=== PATIENT | female | born 1995 | race Caucasian/White ===

== ENCOUNTER 2018-07-08 16:31 | Emergency (ER) | payer SELFPAY ==
[~2018-07-08] VITALS: Ht 157.5 cm; Wt 76.2 kg
[2018-07-08 16:38] VITALS: BP 155/99; Ht 157.5 cm; Wt 76.2 kg
== END 2018-07-08 19:12 | disposition home or self-care (01) ==
LOC: ED 16:31
DX: O20.0 Threatened abortion (principal); O24.911 Unspecified diabetes mellitus in pregnancy, first trimester; E10.8 Type 1 diabetes mellitus with unspecified complications; N64.4 Mastodynia; Z3A.01 Less than 8 weeks gestation of pregnancy
CPT/HCPCS: 36415

== ENCOUNTER 2018-11-16 17:32 | Emergency (ER) | payer MEDICAID ==
[~2018-11-16] VITALS: Ht 157.5 cm; Wt 76.7 kg
[2018-11-16 17:40] VITALS: Ht 157.5 cm; Wt 76.7 kg
[2018-11-16 18:55] LABS: microscopic required? YES; urine erythrocyte 1+ (NEGATIVE)
[2018-11-16 20:57] VITALS: BP 138/76
== END 2018-11-16 20:57 | disposition home or self-care (01) ==
LOC: ED 17:32
PROVIDERS: Emergency Medicine
DX: N39.0 Urinary tract infection, site not specified (principal); N76.0 Acute vaginitis; E10.9 Type 1 diabetes mellitus without complications
CPT/HCPCS: 82962; 87491; 87591; J1815; J7030